=== PATIENT | male | born 1965 | race Caucasian/White ===

== ENCOUNTER → 2017-02-14 | Outpatient (CLI) | payer OTHER ==
[~2017-02-14] MED LIST: ECOTRIN81 MG PO; EPIPEN 2-P0.3 MG/0.3 SQ; FORTAMET1000 MG PO; LIPITOR TAB 2020 MG PO; METOPROLOL TART25 MG PO; NITROSTAT0.4 MG SC/PO; PLAVIX 75 MG TA75 MG PO; PRINIVIL10 MG PO; TRICOR 145 MG145 MG PO; VENTOLIN HFA 66.7 GM INH
== END ==
LOC: EMI 14:39
DX: I63.9 Cerebral infarction, unspecified (principal); R42 Dizziness and giddiness; R51 Headache; I67.82 Cerebral ischemia
CPT/HCPCS: 70551

== ENCOUNTER → 2017-04-29 | Outpatient (CLI) | payer OTHER | LOC: MRI 08:46 | DX: I63.9 Cerebral infarction, unspecified (principal) | CPT/HCPCS: 70544 ==